=== PATIENT | female | born 1980 | race Caucasian/White ===

== ENCOUNTER 2021-08-29 08:47 | Inpatient (IN) | payer SELFPAY ==
[2021-08-29] MEDS ORDERED: fentaNYL 100 MCG/2 ML INJ IV PRN (11:00)
[2021-08-29] MEDS ORDERED: ACETAMINOPHEN 325 MG TAB PO PRN (11:00)
[2021-08-29] MEDS ORDERED: NalbUPHINE 10 MG/1 ML INJ IV PRN (11:00)
[2021-08-29] MEDS ORDERED: OXYTOCIN 10 UNIT/1 ML INJ IM PRN (11:00)
[2021-08-29] MEDS ORDERED: LACTATED RINGERS 1,000 ML IV SCH (11:00)
[2021-08-29] MEDS ORDERED: CARBOPROST TROMETHAMINE 250 MCG/1 ML INJ IM PRN (11:00)
[2021-08-29] MEDS ORDERED: miSOPROStol 200 MCG TAB PR PRN (11:00)
[2021-08-29] MEDS ORDERED: TERBUTALINE 1 MG/1 ML INJ SUB-Q PRN (11:00)
[2021-08-29] MEDS ORDERED: MINERAL OIL 30 ML ORAL LIQD PO PRN (11:00)
[2021-08-29] MEDS ORDERED: METHYLERGONOVINE MALEATE 0.2 MG/ML VIAL IM PRN (11:00)
[2021-08-29] MEDS ORDERED: LIDOCAINE (2%) 20 MG/1 ML VIAL 20 ML MDV INFILTRATI ONE (11:00)
[2021-08-29] MEDS ORDERED: AMPICILLIN/NS 2 GM/100 ML 2 GM/100 ML BAG IV ONE (11:00)
[2021-08-29] MEDS ORDERED: LOPERAMIDE 2 MG CAP PO PRN (11:00)
[2021-08-29] MEDS ORDERED: OXYTOCIN DRIP 30 UNITS/500 ML BAG IV SCH (11:00)
[2021-08-29] MEDS ORDERED: ePHEDrine SULFATE 50 MG/1 ML INJ IV PRN (11:00)
[2021-08-29 11:12] LABS: Hemoglobin 13.4 gm/dl (10.1-14.3); Mean Corpuscular HGB Conc 33 % (30-34); Mean Corpuscular Volume 94 fl (79-97); Platelet Count 155 K/mm3 (140-440); Red Blood Count 4.37 M/mm3 (3.65-5.03); Red Cell Distribution Width 13.6 % (13.2-15.2)
--- NOTE | 2021-08-29 12:32 | History and Physical Report ---
History of Present Illness Date of examination: 08/29/21 Date of admission: 08/29/21 09:47 Chief complaint: ctx History of present illness: at 39.4wks by LMP c/w U/S. care at [facility]. Pt came with c/o ctx. Denies LOF or VB or headache. records in chart with GBS negative; labs essentially wnl and in hospital chart. Past History Past Medical History: no pertinent history Past Surgical History: no surgical history Family/Genetic History: none Social history: no significant social history - Obstetrical History Expected Date of Delivery: 09/01/21 Actual Gestation: 39 Week(s) 4 Day(s) : 5 Hx # Term Pregnancies: 3 Spontaneous Abortions: 1 Number of Living Children: 3 Medications and Allergies Allergies Allergy/AdvReac Type Severity Reaction Status Date / Time No Known Allergies Allergy Unverified 08/29/21 09:42 Active Meds: Active Medications Acetaminophen (Acetaminophen 325 Mg Tab) 650 mg PO Q4H PRN PRN Reason: Pain, Mild (1-3) Carboprost Tromethamine (Carboprost Tromethamine 250 Mcg/1 Ml Inj) 250 mcg IM ONCE PRN PRN Reason: Uterine Bleeding Ephedrine Sulfate (Ephedrine Sulfate 50 Mg/1 Ml Inj) 10 mg IV Q2M PRN PRN Reason: Hypotension Fentanyl (Fentanyl 100 Mcg/2 Ml Inj) 100 mcg IV Q2H PRN PRN Reason: Pain,Severe (7-10) LABOR PAIN Last Admin: 08/29/21 10:35 Dose: 100 mcg Oxytocin/Sodium Chloride (Pitocin/Ns 30 Unit/500ml) 30 units in 500 mls @ 2 mls/hr IV TITR JACIEL; Protocol Lactated Ringer's (Lactated Ringers) 1,000 mls @ 125 mls/hr IV DIRECT JACIEL Last Admin: 08/29/21 10:40 Dose: 125 mls/hr Ampicillin Sodium (Ampicillin/Ns 1 Gm/50 Ml) 1 gm in 50 mls @ 100 mls/hr IV Q4H JACIEL; Protocol Loperamide HCl (Loperamide 2 Mg Cap) 2 mg PO ONCE PRN PRN Reason: give with Hemabate Methylergonovine Maleate (Methylergonovine Maleate 0.2 Mg/Ml Vial) 0.2 mg IM ONCE PRN PRN Reason: Uterine Bleeding Mineral Oil (Mineral Oil 30 Ml Oral Liqd) 30 ml PO QHS PRN PRN Reason: Constipation Misoprostol (Misoprostol 200 Mcg Tab) 800 mcg SC ONCE PRN PRN Reason: Uterine Bleeding Nalbuphine HCl (Nalbuphine 10 Mg/1 Ml Inj) 10 mg IV Q2H PRN PRN Reason: Pain, Moderate (4-6) Oxytocin (Oxytocin 10 Unit/1 Ml Inj) 10 unit IM ONCE PRN PRN Reason: Uterine Bleeding Terbutaline Sulfate (Terbutaline 1 Mg/1 Ml Inj) 0.25 mg SUB-Q ONCE PRN PRN Reason: Hyperstimulation/Hypertonicity Review of Systems All systems: negative (contractions) - Vital Signs Vital signs: Vital Signs Pulse BP 72 127/88 08/29/21 08:58 08/29/21 08:58 Temp Pulse Resp BP Pulse Ox 98 F 103 H 120/83 98 08/29/21 10:45 08/29/21 12:26 08/29/21 10:07 08/29/21 12:26 - Physical Exam Breasts: Positive: deferred Cardiovascular: Regular rate Abdomen: Positive: normal appearance Genitourinary (Female): Positive: normal external genitalia Vulva: both: normal Vagina: Positive: normal moisture Uterus: Positive: enlarged (non-tender, gravid) - Obstetrical FHR: category 1 Uterine Contraction Monitor Mode: External Cervical Dilatation: 5 (per nurse on admit, now 10) Cervical Effacement Percentage: 100 station: 0 Uterine Contraction Pattern: Regular Uterine Contraction Intensity: Moderate Results Result Diagrams: 08/29/21 09:03 Abnormal lab results 08/29/21 Range/Units 09:03 WBC 12.6 H (4.5-11.0) K/mm3 All other labs normal. Assessment and Plan Term IUP in active labor, GBS neg 1. admit to labor and delivery 2. IV pain per pt request 3. Obtain records Expect
--- NOTE | 2021-08-29 12:35 | Procedure Note ---
OB Delivery Note - Delivery Date of Delivery: 08/29/21 Estimated blood loss: other (150cc) - Vaginal Delivery presentation: vertex Delivery position: OA Intrapartum events: meconium, other(please specify) (precipitous delivery) Delivery induction: none Delivery monitor: external FHT, external uterine Route of delivery: Delivery placenta: spontaneous Delivery cord: true knot, 3 umbilical vessels Episiotomy: none Delivery laceration: 2nd degree Delivery repair: vicryl, chromic Anesthesia: local Delivery comments: pt controlled and running up the bed due to severe pain as the baby crowned. SAVD of viable male, nuchal cord x1 reduced and baby with thick meconium seen and I requested NICU team which labor nurse states was unable therefore baby ta cosmo care of by nurse Natividad. Pt sustained 2nd laceration and same repaired with 3-0 vicryl running locked and 2-0 chromic subcutaneously with good hemostasis. Local lidocaine 2% used for pain relief. Placenta delayed and then delivered spontaneously complete with calcifications. NO cervical lacerations seen. Bimanual massage done and fundus and lower uterine segment firm with IV pitocin. Mom and baby stable - Infant A at 1 minute: 8 (wt 3840g; meconium large amount after born) at 5 minutes: 8 Gender: Male (meconium noted post delivery and per labor nurse, NICU team not available to evaluate baby; baby taken care Natividad)
[2021-08-29] MEDS ORDERED: AMPICILLIN/NS 1 GM/50 ML 1 GM/50 ML BAG IV SCH (14:00)
[2021-08-29] MEDS ORDERED: PROMETHAZINE 25 MG RECT SUPP PR PRN (14:47)
[2021-08-29] MEDS ORDERED: WITCH HAZEL/ GLYCERIN PAD TP PRN (14:47)
[2021-08-29] MEDS ORDERED: MAGNESIUM HYDROXIDE (MOM) ORAL LIQD UDC PO PRN (14:47)
[2021-08-29] MEDS ORDERED: LANOLIN/ZINC/DIMETHICONE (LANSINOH) 7 GM TP PRN (14:47)
[2021-08-29] MEDS ORDERED: ONDANSETRON 4 MG/2 ML INJ IV PRN (14:47)
[2021-08-29] MEDS ORDERED: oxyCODONE /ACETAMINOPHEN 5-325MG TAB PO PRN (14:47)
[2021-08-29] MEDS ORDERED: diphenhydrAMINE 25 MG CAP PO PRN (14:47)
[2021-08-29] MEDS ORDERED: PROMETHAZINE 25 MG TAB PO PRN (14:47)
[2021-08-29] MEDS: IBUPROFEN 600 MG TAB PO SCH ×2 (15:50→22:31)
[2021-08-30] MEDS: IBUPROFEN 600 MG TAB PO SCH ×4 (04:23→23:00)
[2021-08-30 06:21] LABS: Hematocrit 38.5 % (30.3-42.9); Hemoglobin 12.5 gm/dl (10.1-14.3)
[2021-08-30] MEDS: PRENATAL VIT27-FE FUMARATE-FOLIC ACID VIT TAB PO SCH (10:13)
--- NOTE | 2021-08-30 12:14 | Progress Note ---
Assessment and Plan A: day 1 S/P . P: Continue routine care. Anticipate discharge home tomorrow if patient continues to do well. Subjective - Subjective Date of service: 08/30/21 Principal diagnosis: day 1 S/P Patient reports: appetite normal, voiding normally, pain well controlled, flatus, ambulating normally, no dizzy ambulation, no nauseated [place]: doing well Objective - Vital Signs Latest vital signs: Vital Signs Temp Pulse Resp BP BP Pulse Ox Pulse Ox 08/30/21 09:35 98.0 F 98 H 18 117/71 98 08/30/21 08:47 95 08/30/21 01:40 98.7 F 76 18 102/58 95 08/30/21 01:37 98.7 F 76 18 95 08/29/21 20:49 97.8 F 80 18 110/72 96 08/29/21 20:30 98 08/29/21 17:09 97.9 F 91 H 18 102/71 95 08/29/21 14:20 99.0 F 96 H 18 117/79 96 98 08/29/21 13:56 105 H 98 08/29/21 13:51 100 H 98 08/29/21 13:46 106 H 97 08/29/21 13:41 97 H 97 08/29/21 13:36 106 H 97 08/29/21 13:31 113 H 96 08/29/21 13:26 108 H 97 08/29/21 13:21 107 H 97 08/29/21 13:16 103 H 97 08/29/21 13:11 98 H 97 08/29/21 13:06 109 H 98 08/29/21 13:01 98 H 98 08/29/21 12:56 93 H 98 08/29/21 12:51 95 H 98 08/29/21 12:46 97 H 98 08/29/21 12:41 109 H 98 08/29/21 12:39 97 H 131/66 08/29/21 12:36 97 H 99 08/29/21 12:31 98 H 99 08/29/21 12:26 103 H 98 08/29/21 12:21 94 H 97 08/29/21 12:16 98 H 99 Intake and Output 08/29/21 08/30/21 08/30/21 23:59 07:59 15:59 Intake Total 480 240 Output Total 950 Balance -470 240 Intake: Intake, Free Water 480 240 Output: Urine 950 Void 950 Other: Total, Output Amount 350 # Voids Void 1 1 - Exam Cardiovascular: Present: Regular rate, No murmurs Lungs: Present: Clear to auscultation Abdomen: Present: normal appearance, soft. Absent: distention, tenderness, guarding, rigidity Uterus: Present: normal, firm, fundal height below umbilicus (fundus firm and midline at 1 FB below umbilicus). Absent: bogginess, tenderness Extremities: Absent: tenderness
--- NOTE | 2021-08-31 06:34 | Progress Note ---
Assessment and Plan A: day 2 S/P . P: Discharge patient home today. Discussed with patient discharge instructions and warning signs. Advised patient to continue taking her vitamin daily at home. Advised patient to avoid intercourse, lifting, housework. Advised patient to follow up at [facility] in 6 weeks. Patient voiced understanding of all instructions. Subjective - Subjective Date of service: 08/31/21 Principal diagnosis: day 2 S/P Interval history: Patient desires discharge home today. Patient reports: appetite normal, voiding normally, pain well controlled, flatus, ambulating normally, no dizzy ambulation, no nauseated : doing well Objective - Vital Signs Latest vital signs: Vital Signs Temp Pulse Resp BP Pulse Ox Pulse Ox 08/31/21 01:04 98.4 F 77 18 114/74 100 08/31/21 00:00 18 08/30/21 23:00 18 08/30/21 20:00 98 08/30/21 18:25 97.6 F 80 18 119/78 99 08/30/21 13:04 97.7 F 82 18 114/77 99 08/30/21 09:35 98.0 F 98 H 18 117/71 98 08/30/21 08:47 95 Intake and Output 08/30/21 08/30/21 08/31/21 15:59 23:59 07:59 Intake Total 120 120 Balance 120 120 Intake: Oral 120 120 Other: Total, Intake Amount 120 120 # Voids Void 1 1 - Exam Cardiovascular: Present: Regular rate, No murmurs Lungs: Present: Clear to auscultation Abdomen: Present: normal appearance, soft. Absent: distention, tenderness, guarding, rigidity Uterus: Present: normal, firm, fundal height below umbilicus (fundus firm and midline at 1 FB below umbilicus). Absent: bogginess, tenderness Extremities: Absent: tenderness, edema
--- NOTE | 2021-08-31 06:39 | Discharge Summary ---
Providers - Providers Date of Admission: 08/29/21 09:47 Date of discharge: 08/31/21 Attending physician: ADRIANA VERONICA Primary care physician: ASHLEE NAIK MD Hospitalization Reason for admission: active labor Delivery: Laceration: 2nd degree Other procedures: none complications: none Discharge diagnosis: IUP at term delivered [place] baby: male Pertinent studies: Labs Hospital course: Stable hospital course. Condition at discharge: Good Disposition: 01 HOME / SELF CARE / HOMELESS - Discharge Diagnoses (1) Term delivered Status: Acute Plan - Provider Discharge Summary Activity: routine, no sex for 6 weeks, no heavy lifting 4 weeks, no strenuous exercise Diet: routine Instructions: routine Additional instructions: Continue taking your vitamin daily at home. Follow up at [facility] in 6 weeks. Call your doctor immediately for: * Fever > 100.5 * Heavy vaginal bleeding ( >1 pad per hour) * Severe persistent headache * Shortness of breath * Reddened, hot, painful area to leg or breast - Follow up plan Follow up: PRIMARY MD HEENA [Primary Care Provider] - 6 Weeks
[2021-08-31] MEDS: PRENATAL VIT27-FE FUMARATE-FOLIC ACID VIT TAB PO SCH (10:32)
[2021-08-31] MEDS: IBUPROFEN 600 MG TAB PO SCH (10:32)
[2021-08-31 14:37] VITALS: BP 119/71
== END 2021-08-31 16:05 | disposition home or self-care (01) | DRG 807 ==
LOC: APU 08:47 → TRG 08:47 → LD 09:32 → TRG 09:47 → LD 09:47 → OB 14:13
PROVIDERS: ADMIT Obstetrics & Gynecology; ATTEND Obstetrics & Gynecology
PROC: 10E0XZZ Delivery of Products of Conception, External Approach (ICD-10-PCS; principal; 2021-08-29)
PROC: 0KQM0ZZ Repair Perineum Muscle, Open Approach (ICD-10-PCS; 2021-08-29)
DX: O77.0 Labor and delivery complicated by meconium in amniotic fluid (principal); Z37.0 Single live birth; Z3A.39 39 weeks gestation of pregnancy; Z20.822 Contact with and (suspected) exposure to COVID-19; O62.3 Precipitate labor; O70.1 Second degree perineal laceration during delivery; O69.81X0 Labor and delivery complicated by cord around neck, without compression, not applicable or unspecified
CPT/HCPCS: 36415; 59025; 85014; 85018; 85027; 86592; 86850; 86900; 86901; 96360; 96374; G0378; J3490; J0290; J0690; J3010; J7120; U0003